=== PATIENT | male | born 1970 | race Two or more races ===

== ENCOUNTER 2023-02-13 06:38 | Inpatient (IN) | payer OTHER ==
[~2023-02-13] VITALS: Ht 165.1 cm; Wt 64.4 kg
[~2023-02-13 06:38] MED LIST: ACID CONTROLLER20 MG PO; FLUCONAZOLE200 MG PO; LIDOCAINE HCL5 ML; M-DRYL12.5 MG/5; NYSTATIN15 G2; PANTOPRAZOLE SO40 M2 PO; PROTONIX40 MG PO; QUESTRAN PACKET4 GM PO; ULTRAM50 MG PO
[2023-02-13] MEDS ORDERED: ATRIPLA TABLET1 EACH (07:30)
[2023-02-13 08:45] LABS: HEMATOCRIT 42.8 % (39.0-48.0); MEAN CELL VOLUME 94.9 fL (80.0-100.00); MEAN CORPUSCULAR HEMOGLOBIN 33.3 pg (27.00-32.0); MEAN CORPUSCULAR HGB CONC 35.1 g/dl (32.0-36.0); PLATELET COUNT 191 K/uL (150-450); RED BLOOD COUNT 4.51 M/uL (4.00-6.00); RED CELL DISTRIBUTION WIDTH 13.2 % (11.5-14.5)
[2023-02-13 08:59] LABS: INR 1.07; PARTIAL THROMBOPLASTIN TIME 27.8 SECONDS (22.0-34.0); PROTHROMBIN TIME 11.2 SECONDS (9.0-11.5)
[2023-02-13 09:04] LABS: PH,URINE 5.5 (5.0-8.0); URINE APPEARANCE Clear; URINE BILIRRUBIN Negative (NEGATIVE); URINE BLOOD Negative; URINE COLOR Yellow; URINE GLUCOSE Negative (NEGATIVE); URINE LEUKOCYTE Negative; URINE NITRATE Negative; URINE PROTEIN Negative (NEGATIVE); URINE UROBILINOGEN 0.2 E.U./dl
[2023-02-13 09:07] LABS: URINE BACTERIA 15.1 uL (0.0-1933); URINE EPITHELIAL CELLS 2.3 uL (0.0-38.8); URINE WBC 2.4 uL (0.0-23.2)
[2023-02-13 09:10] LABS: ALBUMIN 4.2 gm/dL (3.4-5.0); BILIRUBIN TOTAL 0.38 mg/dL (0.3-1.2); CALCIUM 9.6 mg/dL (8.5-10.1); CREATININE SERUM 1.19 mg/dL (0.70-1.30); GFR 63.95; GLOBULINA 3.1 G/DL (2.4-3.5); POTASSIUM 4.39 mEq/L (3.5-5.1); TOTAL PROTEIN 7.3 gm/dL (6.4-8.2)
[2023-02-13 09:18] LABS: URINE RBC 1.2 uL (0.0-20.8)
[2023-02-13] MEDS ORDERED: NUPERCAINAL56.7 GM TOP (16:29)
[2023-02-13] MEDS ORDERED: PERCOCET 5-3251 EACH PO (16:29)
[2023-02-13] MEDS ORDERED: INTESTINEX680 M1 PO (16:29)
[2023-02-13] MEDS ORDERED: NEURONTIN300 MG PO (16:29)
[2023-02-13] MEDS ORDERED: TAMS0.4C PO (16:30)
== END 2023-02-14 09:33 | disposition home or self-care (01) | DRG 348 ==
LOC: ER 06:38 → SEC-K 11:20 → O/R 14:46 → SURG 18:46
PROVIDERS: General Practice; ADMIT Surgery; ATTEND Surgery
PROC: 3E0T3BZ Introduction of Anesthetic Agent into Peripheral Nerves and Plexi, Percutaneous Approach (ICD-10-PCS; 2023-02-13)
PROC: 0D8R0ZZ Division of Anal Sphincter, Open Approach (ICD-10-PCS; principal; 2023-02-13 13:15)
DX: K60.1 Chronic anal fissure (principal); K62.5 Hemorrhage of anus and rectum; Z20.822 Contact with and (suspected) exposure to COVID-19